=== PATIENT | female | born 1970 | race American Indian/Alaskan Native ===

== ENCOUNTER 2017-04-07 22:57 | Emergency (ER) | payer MEDICAID ==
--- NOTE | 2017-04-07 23:13 | C.PDOC ---
History Of Present Illness 46 year old female was brought to the ED by EMS for evaluation of altered mental status beginning just prior to arrival. As per patient's friend, they were using heroin and having a conversation when the patient began to slur her speech, had a tense cable respooler, and syncopized. Upon EMS arrival, patient was very lethargic and given narcan in the field. Patient notes a daily headache for the last few week and has not been taking her blood pressure medication for five months. She denies fever, chest pain, or shortness of breath. Time Seen by Provider: 04/07/17 23:02 Chief Complaint (Nursing): Altered Mental Status History Per: Patient, EMS, Other (friend ) History/Exam Limitations: None Onset/Duration Of Symptoms: Hrs Onset Of Symptoms: <3 Hours Current Symptoms Are (Timing): Better Usual Baseline: Alert Oriented Use Of Anticoag/Antiplatelets: No Recent travel outside of the [place]: No Associated Symptoms: Headache. denies: Fever, Seizure, Vomiting, Diarrhea Past Medical History Reviewed: Historical Data, Nursing Documentation, Vital Signs Vital Signs: Last Vital Signs Temp 98.8 F 04/07/17 23:08 Pulse 99 H 04/08/17 00:11 Resp 20 04/08/17 00:11 BP 149/100 H 04/08/17 00:11 Pulse Ox 100 04/08/17 00:11 - Medical History PMH: HTN, Hypercholesterolemia Family History: States: Unknown Family Hx - Social History Hx Tobacco Use: Yes Hx Alcohol Use: No Hx Substance Use: No - Immunization History Hx Tetanus Toxoid Vaccination: No Hx Influenza Vaccination: Yes Hx Pneumococcal Vaccination: No Review Of Systems Constitutional: Positive for: Other (lethargic ). Negative for: Fever, Chills Cardiovascular: Negative for: Chest Pain, Palpitations Respiratory: Negative for: Cough, Shortness of Breath Gastrointestinal: Negative for: Nausea, Vomiting, Abdominal Pain, Diarrhea Neurological: Positive for: Headache, Other (altered mental status ) Physical Exam - Physical Exam Appears: Non-toxic, Other (Patient appears lethargic but is responsive ) Skin: Warm, Dry Head: Atraumatic Eye(s): bilateral: Normal Inspection, PERRL, EOMI Oral Mucosa: Moist Neck: Supple Chest: Symmetrical, No Deformity Cardiovascular: No Murmur, Other (patient is tachycardic ) Respiratory: Normal Breath Sounds, No Rales, No Rhonchi, No Wheezing Gastrointestinal/Abdominal: Soft, No Tenderness, No Distention, No Guarding, No Rebound Neurological/Psych: Oriented x3, Normal Cognition, Normal Cranial Nerves, Normal Motor, Normal Sensation, Other (slightly slurred speech on exam) ED Course And Treatment - Laboratory Results Result Diagrams: 04/07/17 23:23 04/07/17 23:23 Lab Interpretation: No Acute Changes ECG: Interpreted By Me ECG Rhythm: Sinus Tachycardia (with LVH), Nonspecific Changes (T wave changes) ECG Interpretation: No Acute Changes Rate From EC - CT Scan/US CT Head Without Intravenous Contrast Other Rad Studies (CT/US): Read By Radiologist, Radiology Report Reviewed CT/US Interpretation: FINDINGS: Brain: No acute intracranial hemorrhage. No significant white matter disease. No edema. Ventricles: No significant ventriculomegaly. Bones: No acute displaced fracture. Sinuses: Unremarkable as visualized. No acute sinusitis. Mastoid air cells: Unremarkable as visualized. No mastoid effusion. IMPRESSION: No acute intracranial hemorrhage , or suspicious mass effect Progress Note: EKG, Head CT, UA, and labs were ordered. Patient was given trandate. Reevaluation Time: 00:18 Reassessment Condition: Improved (BP 140/100 after Labetolol. No further headache.) Disposition - Disposition Referrals: [facility] [Outside] Disposition: HOME/ ROUTINE Disposition Time: 00:20 Condition: IMPROVED Prescriptions: Valsartan [Diovan] 160 mg PO DAILY #90 tab Instructions: Hypertension (ED), Narcotic Abuse (ED) Forms: [employer] (Czech) - Clinical Impression Clinical Impression: Hypertensive urgency, Opiate abuse, episodic - Scribe Statement The provider has reviewed the documentation as recorded by the Scribe Oliva Elaine All medical record entries made by the Scribe were at my direction and personally dictated by me. I have reviewed the chart and agree that the record accurately reflects my personal performance of the history, physical exam, medical decision making, and the department course for this patient. I have also personally directed, reviewed, and agree with the discharge instructions and disposition.
[2017-04-07] MEDS ORDERED: Labetalol 25mg/5ml Syringe IV STA (23:16)
[2017-04-07 23:25] VITALS: TEMP 98.8
[2017-04-07 23:25] LABS: BASO % 0.5 % (0.0-2.0); EOS # 0.2 K/uL (0.0-0.7); EOS % 3.6 % (0.0-4.0); HEMATOCRIT 41.4 % (34.0-47.0); LYMPH # 3.8 K/uL (1.0-4.3); LYMPH % 59.1 % (20.0-40.0); MEAN CORPUSCULAR HEMOGLOBIN 30.1 pg (27.0-31.0); MEAN CORPUSCULAR HGB CONC 33.2 g/dL (33.0-37.0); MEAN PLATELET VOLUME 7.1 fL (7.2-11.7); MONO # 0.5 K/uL (0.0-0.8); MONO % 8.1 % (0.0-10.0); RED CELL DISTRIBUTION WIDTH 14.3 % (11.5-14.5); WHITE BLOOD COUNT 6.5 K/uL (4.8-10.8)
[2017-04-07 23:27] LABS: MEAN CELL VOLUME 90.7 fL (81.0-99.0)
[2017-04-07 23:37] LABS: CHLORIDE 101 mmol/L (98-107)
[2017-04-07 23:38] LABS: POTASSIUM 3.1 mmol/L (3.6-5.2); SODIUM 142 mmol/L (132-148)
[2017-04-07 23:40] LABS: ALB/GLOB RATIO 1.2 (1.0-2.1); ALKALINE PHOSPHATASE 88 U/L (38-126); AST/SGOT 22 U/L (14-36); BILIRUBIN,TOTAL 0.4 mg/dL (0.2-1.3); BLOOD UREA NITROGEN 10 mg/dL (7-17); CARBON DIOXIDE 25 mmol/L (22-30); GFR AFRICAN-AMERICAN > 60; TOTAL PROTEIN 7.1 g/dL (6.3-8.3)
[2017-04-07 23:41] LABS: ALCOHOL SERUM 44 mg/dl (0-10); ALT/SGPT 24 U/L (9-52); CALCIUM 9.7 mg/dl (8.6-10.4); GLUCOSE,RANDOM 97 mg/dL (65-105)
--- NOTE | 2017-04-08 00:05 | CT ---
EXAM: CT Head Without Intravenous Contrast CLINICAL HISTORY: 46 years old, female; Signs and symptoms; Altered mental status/memory loss; Additional info: AMS TECHNIQUE: Axial computed tomography images of the head/brain without intravenous contrast. All CT scans at this facility use one or more dose reduction techniques, viz.: automated exposure control; ma/kV adjustment per patient size (including targeted exams where dose is matched to indication; i.e. head); or iterative reconstruction technique. Coronal and sagittal reformatted images were created and reviewed. COMPARISON: No relevant prior studies available. FINDINGS: Brain: No acute intracranial hemorrhage. No significant white matter disease. No edema. Ventricles: No significant ventriculomegaly. Bones: No acute displaced fracture. Sinuses: Unremarkable as visualized. No acute sinusitis. Mastoid air cells: Unremarkable as visualized. No mastoid effusion. IMPRESSION: No acute intracranial hemorrhage, or suspicious mass effect.
[2017-04-08 00:11] VITALS: BP 149/100; PULSE 99; RESP 20; O2SAT 100
--- NOTE | 2017-04-09 12:34 | CARD ---
APPROVED REPORT EKG Measurement Heart [id number] <Conclusion> Sinus tachycardia Possible Left atrial enlargement Left ventricular hypertrophy Nonspecific T wave abnormality Abnormal ECG
== END 2017-04-08 00:29 | disposition home or self-care (01) ==
LOC: C.ER 22:57
DX: I16.0 Hypertensive urgency (principal); I10 Essential (primary) hypertension; Z72.0 Tobacco use; F11.10 Opioid abuse, uncomplicated